=== PATIENT | male | born 1985 | race Caucasian/White ===

== ENCOUNTER 2022-07-26 20:42 | Emergency (ER) | payer MEDICAID ==
[~2022-07-26] VITALS: Ht 188 cm; Wt 90.9 kg
[2022-07-26 20:50] VITALS: BP 163/97
[2022-07-26] MEDS ORDERED: LIDOcaine 1% W/epiNEPHrine 1:100,000 20ml vial SQ ONE (22:55)
[2022-07-26] MEDS ORDERED: LIDOcaine 1% w/EPI 1:100,000 30ml vial (MDV) SQ ONE (23:00)
== END 2022-07-26 23:37 | disposition home or self-care (01) ==
LOC: ER 20:43
DX: S01.511A Laceration without foreign body of lip, initial encounter (principal); S09.93XA Unspecified injury of face, initial encounter; F17.200 Nicotine dependence, unspecified, uncomplicated; Z88.8 Allergy status to other drugs, medicaments and biological substances; X58.XXXA Exposure to other specified factors, initial encounter; Y93.89 Activity, other specified; Y92.89 Other specified places as the place of occurrence of the external cause; Y99.8 Other external cause status
CPT/HCPCS: 12051; 82948; 99284

== ENCOUNTER 2023-06-26 21:09 | Emergency (ER) | payer MEDICAID, OTHER ==
[~2023-06-26] VITALS: Ht 188 cm; Wt 100.0 kg
[2023-06-26 21:14] VITALS: BP 134/96; PULSE 140; RESP 18; TEMP 98.6; O2SAT 99
--- NOTE | 2023-06-26 21:19 | NUR ---
MSE COMPLETE BY EMMANUEL RUBIO
== END 2023-06-26 22:18 | disposition home or self-care (01) ==
LOC: ER 21:09
DX: M54.2 Cervicalgia (principal); Y04.8XXA Assault by other bodily force, initial encounter; Y93.89 Activity, other specified; Y92.89 Other specified places as the place of occurrence of the external cause; Y99.8 Other external cause status
CPT/HCPCS: 70450; 72125; 99284

== ENCOUNTER 2024-05-24 21:24 | Emergency (ER) | payer OTHER ==
[~2024-05-24] VITALS: Ht 188 cm; Wt 100.0 kg
== END 2024-05-24 21:45 ==
LOC: ER 21:24
DX: Z02.89 Encounter for other administrative examinations (principal); F10.90 Alcohol use, unspecified, uncomplicated; Z87.442 Personal history of urinary calculi; Z88.8 Allergy status to other drugs, medicaments and biological substances
CPT/HCPCS: 99283